=== PATIENT | male | born 1985 | race Caucasian/White ===

== ENCOUNTER 2017-12-25 00:51 | Emergency (ER) | payer MEDICAID ==
[~2017-12-25] VITALS: Ht 175.3 cm; Wt 125.0 kg
[2017-12-25 00:58] VITALS: BP 175/104
[2017-12-25] MEDS ORDERED: MAALOX/HYOSCYAMINE/LIDOCAINE 45 ML BTL ONE (01:20)
[2017-12-25] MEDS ORDERED: PROMETHAZINE 25 MG/ML, 1ML IM STA (01:28)
[2017-12-25] MEDS ORDERED: MAALOX/HYOSCYAMINE/LIDOCAINE 45 ML BTL PO ONE (01:30)
[2017-12-25] MEDS ORDERED: PROMETHAZINE 25MG TABLET ONE (01:32)
[2017-12-25] MEDS ORDERED: PROMETHAZINE 25MG TABLET PO STA (01:40)
[2017-12-25 01:54] LABS: MICROSCOPIC NOT IND
[2017-12-25 01:55] LABS: CULTURE INDICATED? NO
[2017-12-25 01:58] LABS: AMPHETAMINE SCREEN, URINE Negative (Negative); BARBITURATE SCREEN, URINE Negative (Negative); BENZODIAZEPINE SCREEN, URINE Negative (Negative); CANNABINOID SCREEN, URINE Positive (Negative); COCAINE SCREEN, URINE Negative (Negative); METHADONE SCREEN, URINE Negative (Negative); OPIATE SCREEN, URINE Negative (Negative)
[2017-12-25 02:00] LABS: BASOPHILS % (AUTO) 1 % (0-1); EOSINOPHILS # (AUTO) 0.26 x10^3/uL (0-0.4); EOSINOPHILS % (AUTO) 2 % (1-7); LYMPHOCYTES # (AUTO) 2.34 x10^3/uL (1-3.4); LYMPHOCYTES % (AUTO) 21 % (22-44); MD NO; MEAN CORPUSCULAR HEMOGLOBIN 30.7 pg (27.5-34.5); MEAN CORPUSCULAR HGB CONC 34.2 g/dL (33.2-36.2); MEAN CORPUSCULAR VOLUME 89.6 fL (81-97); MEAN PLATELET VOLUME 8.3 fL (7.4-10.4); MONOCYTES # (AUTO) 0.71 x10^3/uL (0.2-0.8); MONOCYTES % (AUTO) 6 % (2-9); NEUTROPHILS # (AUTO) 7.96 x10^3/uL (1.8-6.8); NEUTROPHILS % (AUTO) 70 % (42-75); PLATELET COUNT 303 x10^3/uL (130-400); RED BLOOD COUNT 5.71 x10^6/uL (4.38-5.82); RED CELL DISTRIBUTION WIDTH 13.1 % (9.4-14.8)
[2017-12-25] MEDS ORDERED: KETOROLAC 30 MG/1 ML IVPush ONE (02:00)
[2017-12-25 02:05] LABS: ALANINE AMINOTRANSFERASE 40 U/L (12-78); ALBUMIN 3.8 g/dL (3.4-5.0); ANION GAP 11 mmol/L (5-15); CALCIUM 9.6 mg/dL (8.5-10.1); CHLORIDE 106 mmol/L (98-107); CREATININE 1.18 mg/dL (0.7-1.3)
[2017-12-25 02:07] LABS: ALKALINE PHOSPHATASE 72 U/L (45-117); BILIRUBIN,TOTAL 0.3 mg/dL (0.2-1.0); TOTAL PROTEIN 8.2 g/dL (6.4-8.2)
[2017-12-25] MEDS ORDERED: KETOROLAC 30 MG/1 ML ONE (02:17)
[2017-12-25] MEDS ORDERED: OMNIPAQUE 350 MG/ML, 100ML BOTTLE ONE (02:26)
== END 2017-12-25 03:02 | disposition home or self-care (01) ==
LOC: ED 01:26
DX: R10.13 Epigastric pain (principal); R10.12 Left upper quadrant pain; R10.11 Right upper quadrant pain; F17.200 Nicotine dependence, unspecified, uncomplicated
CPT/HCPCS: 36415; 74177; 80053; 80307; 81003; 83690; 85025; 96374; 99285; J1885; Q0169; Q9967

== ENCOUNTER 2017-12-31 03:24 | Day surgery (SDC) | payer MEDICAID ==
[~2017-12-31] VITALS: Ht 177.8 cm; Wt 100.0 kg
[2017-12-31] MEDS ORDERED: ONDA4TAB7 PO (03:35)
[2017-12-31] MEDS ORDERED: FAMO10TA77 PO (03:35)
[2017-12-31] MEDS ORDERED: MORPHINE SULFATE 4 MG/ML, 1ML ONE ×2 (03:52→07:06)
[2017-12-31] MEDS: MORPHINE SULFATE 4 MG/ML, 1ML IVPush PRN ×2 (03:53→07:08)
[2017-12-31 04:17] LABS: BASOPHILS # (AUTO) 0.13 x10^3/uL (0-0.1); BASOPHILS % (AUTO) 1 % (0-1); EOSINOPHILS # (AUTO) 0.58 x10^3/uL (0-0.4); EOSINOPHILS % (AUTO) 5 % (1-7); LYMPHOCYTES # (AUTO) 2.01 x10^3/uL (1-3.4); LYMPHOCYTES % (AUTO) 17 % (22-44); MD NO; MEAN CORPUSCULAR HGB CONC 33.5 g/dL (33.2-36.2); MEAN CORPUSCULAR VOLUME 89.5 fL (81-97); MEAN PLATELET VOLUME 7.5 fL (7.4-10.4); MONOCYTES # (AUTO) 0.79 x10^3/uL (0.2-0.8); MONOCYTES % (AUTO) 7 % (2-9); NEUTROPHILS # (AUTO) 8.38 x10^3/uL (1.8-6.8); NEUTROPHILS % (AUTO) 71 % (42-75); PLATELET COUNT 351 x10^3/uL (130-400); RED BLOOD COUNT 5.18 x10^6/uL (4.38-5.82); RED CELL DISTRIBUTION WIDTH 12.9 % (9.4-14.8)
[2017-12-31 04:29] LABS: ALANINE AMINOTRANSFERASE 34 U/L (12-78); ALBUMIN 3.3 g/dL (3.4-5.0); ANION GAP 8 mmol/L (5-15); CALCIUM 8.8 mg/dL (8.5-10.1); CHLORIDE 104 mmol/L (98-107); CREATININE 0.99 mg/dL (0.7-1.3)
[2017-12-31 04:31] LABS: ALKALINE PHOSPHATASE 72 U/L (45-117); BILIRUBIN,TOTAL 0.3 mg/dL (0.2-1.0); TOTAL PROTEIN 7.9 g/dL (6.4-8.2)
[2017-12-31] MEDS ORDERED: SODIUM CHLORIDE 0.9% 1,000 ML IV ONE (06:24)
[2017-12-31] MEDS ORDERED: CEFTRIAXONE PMX 1GM/50ML 50 ML ONE (06:26)
[2017-12-31] MEDS ORDERED: CEFOTETAN PMX 1GM/50ML 50 ML IV ONE (06:30)
[2017-12-31] MEDS ORDERED: SODIUM CHLORIDE FLUSH 10ML SYR IVF PRN (06:30)
[2017-12-31 07:26] VITALS: BP 153/92
[2017-12-31] MEDS ORDERED: FENTANYL PF 250 MCG/5ML ONE (08:28)
[2017-12-31] MEDS ORDERED: MIDAZOLAM 1 MG/ML, 2ML ONE (08:28)
[2017-12-31] MEDS ORDERED: PROPOFOL 10 MG/ML, 20ML ONE (08:29)
[2017-12-31] MEDS ORDERED: ROCURONIUM 10MG/ML,5ML ONE (08:30)
[2017-12-31] MEDS ORDERED: SUCCINYLCHOLINE 20 MG/ML, 10ML ONE (08:30)
[2017-12-31] MEDS ORDERED: NEOSTIGMINE 1 MG/ML, 10ML ONE (08:30)
[2017-12-31] MEDS ORDERED: GLYCOPYRROLATE 0.2MG/1ML, 5ML ONE (08:31)
[2017-12-31] MEDS ORDERED: CEFOTETAN PMX 1GM/50ML 50 ML ONE ×2 (08:58)
[2017-12-31] MEDS ORDERED: ACETAMINOPHEN 325 MG TABLET PO PRN (09:30)
[2017-12-31] MEDS ORDERED: ONDANSETRON 2MG/ML, 2ML IV PRN (09:30)
[2017-12-31] MEDS ORDERED: FENTANYL PF 100 MCG/2ML IV PRN (09:30)
[2017-12-31] MEDS ORDERED: MEPERIDINE/PF 25MG/0.5ML IVPush PRN (09:30)
[2017-12-31] MEDS ORDERED: ONDANSETRON ODT 8 MG PO PRN (09:30)
[2017-12-31] MEDS ORDERED: PROMETHAZINE 25 MG/ML, 1ML IM PRN ×2 (09:30)
[2017-12-31] MEDS ORDERED: hydrALAzine 20 MG/ML, 1ML IV PRN (09:30)
[2017-12-31] MEDS ORDERED: PROMETHAZINE 25 MG/ML, 1ML IV PRN (09:30)
[2017-12-31] MEDS ORDERED: HYDROmorphone 1 MG/ML, 1ML IV PRN (09:30)
[2017-12-31] MEDS ORDERED: MORPHINE SULFATE 4 MG/ML, 1ML IVPush PRN (09:30)
[2017-12-31] MEDS ORDERED: BUPIVACAINE/PF-EPI 0.5% 1:200K INFIL ONE (10:06)
[2017-12-31] MEDS ORDERED: FENTANYL PF 100 MCG/2ML ONE ×3 (10:08→11:37)
[2017-12-31] MEDS ORDERED: LABETALOL 5MG/ML, 20ML ONE (11:04)
[2017-12-31] MEDS: LABETALOL 5MG/ML, 20ML IV PRN ×4 (11:05→11:56)
[2017-12-31] MEDS ORDERED: OXYcodone 5 MG/5 ML ORAL.SOL UDC ONE ×2 (11:08→16:37)
[2017-12-31] MEDS: OXYcodone 5 MG/5 ML ORAL.SOL UDC PO PRN ×2 (11:09→16:38)
== END 2017-12-31 18:50 | disposition home or self-care (01) ==
LOC: ED 03:44 → OR 18:35 → ED 18:50 → OR 18:50
PROVIDERS: ATTEND Colon & Rectal Surgery
DX: K80.12 Calculus of gallbladder with acute and chronic cholecystitis without obstruction (principal)
CPT/HCPCS: 36415; 47562; 76700; 80053; 83690; 85025; 88304; 93005; J0330; J2250; J2704; J2710; J3010; J3490; J7030; S0074

== ENCOUNTER 2018-01-09 13:20 | Emergency (ER) | payer MEDICAID ==
[~2018-01-09] VITALS: Ht 177.8 cm; Wt 125.2 kg
[~2018-01-09 13:20] MED LIST: FAMO10TA77 PO; ONDA4TAB7 PO
[2018-01-09 13:30] VITALS: BP 146/92
[2018-01-09] MEDS ORDERED: DIPHENHYDRAMINE 50 MG CAPSULE ONE (14:25)
[2018-01-09] MEDS ORDERED: DIPHENHYDRAMINE 50 MG/ML, 1ML IM ONE (14:30)
== END 2018-01-09 14:37 | disposition home or self-care (01) ==
LOC: ED 14:31
DX: L50.0 Allergic urticaria (principal); Z90.49 Acquired absence of other specified parts of digestive tract
CPT/HCPCS: 96372; 99283; J1200; J7512

== ENCOUNTER 2018-01-16 23:47 | Emergency (ER) | payer MEDICAID ==
[~2018-01-16] VITALS: Ht 177.8 cm; Wt 124.1 kg
[2018-01-16 23:49] VITALS: BP 148/99
[2018-01-17] MEDS ORDERED: KETOROLAC 30 MG/1 ML ONE (00:23)
[2018-01-17] MEDS ORDERED: KETOROLAC 30 MG/1 ML IM ONE (00:30)
== END 2018-01-17 01:05 | disposition home or self-care (01) ==
LOC: ED 01-17 01:03
DX: M25.512 Pain in left shoulder (principal); E66.01 Morbid (severe) obesity due to excess calories; Z90.49 Acquired absence of other specified parts of digestive tract; Z68.39 Body mass index [BMI] 39.0-39.9, adult
CPT/HCPCS: 73030; 96372; 99284; J1885

== ENCOUNTER 2018-01-17 11:26 | Emergency (ER) | payer MEDICAID ==
[~2018-01-17] VITALS: Ht 177.8 cm; Wt 125.0 kg
[2018-01-17] MEDS ORDERED: FAMOTIDINE 20 MG TABLET ONE (11:50)
[2018-01-17] MEDS ORDERED: PANTOPRAZOLE 20MG TABLET ONE (11:50)
[2018-01-17] MEDS ORDERED: EPINEPHRINE 1 MG/ML, 1ML ONE (11:52)
[2018-01-17] MEDS ORDERED: EPINEPHRINE 1 MG/ML, 1ML IM ONE (12:00)
[2018-01-17] MEDS ORDERED: FAMOTIDINE 20 MG TABLET PO ONE (12:00)
[2018-01-17 12:41] VITALS: BP 141/80
== END 2018-01-17 13:41 | disposition home or self-care (01) ==
LOC: ED 12:15
DX: R22.9 Localized swelling, mass and lump, unspecified (principal); T39.8X5A Adverse effect of other nonopioid analgesics and antipyretics, not elsewhere classified, initial encounter; E66.01 Morbid (severe) obesity due to excess calories; Z68.39 Body mass index [BMI] 39.0-39.9, adult; Z90.49 Acquired absence of other specified parts of digestive tract
CPT/HCPCS: 96372; 99283; J0171; J7512

== ENCOUNTER 2018-07-15 08:19 | Emergency (ER) | payer SELFPAY ==
[~2018-07-15] VITALS: Ht 175.3 cm; Wt 128.7 kg
[2018-07-15 08:27] VITALS: BP 172/100
[2018-07-15] MEDS ORDERED: IBUPROFEN 200 MG TABLET ONE (09:41)
[2018-07-15] MEDS ORDERED: IBUPROFEN 800 MG TABLET PO ONE (10:00)
== END 2018-07-15 11:01 | disposition home or self-care (01) ==
LOC: ED 09:09
DX: S43.52XA Sprain of left acromioclavicular joint, initial encounter (principal); Z88.5 Allergy status to narcotic agent; W20.8XXA Other cause of strike by thrown, projected or falling object, initial encounter; Y93.89 Activity, other specified; Y92.69 Other specified industrial and construction area as the place of occurrence of the external cause; Y99.8 Other external cause status
CPT/HCPCS: 99283

== ENCOUNTER 2020-07-27 10:27 | Day surgery (SDC) | payer MEDICAID ==
[2020-07-26 15:10] LABS: HCT (SEDRATE) 46.7 % (39.2-51.8)
[2020-07-26 15:11] LABS: BASOPHILS % (AUTO) 1 % (0-1); EOSINOPHILS % (AUTO) 7 % (1-7); LYMPHOCYTES % (AUTO) 28 % (22-44); MEAN CORPUSCULAR HEMOGLOBIN 29.1 pg (27.5-34.5); MEAN CORPUSCULAR HGB CONC 33.6 g/dL (33.2-36.2); MONOCYTES % (AUTO) 7 % (2-9); NEUTROPHILS % (AUTO) 57 % (42-75); PLATELET COUNT 361 x10^3/uL (130-400); RED BLOOD COUNT 5.33 x10^6/uL (4.38-5.82); RED CELL DISTRIBUTION WIDTH 13.7 % (9.4-14.8)
[2020-07-26 15:16] LABS: MD NO
[2020-07-26 15:19] LABS: ANION GAP 6 mmol/L (5-15); CALCIUM 9.1 mg/dL (8.5-10.1); CHLORIDE 109 mmol/L (98-107); CREATININE 0.94 mg/dL (0.7-1.3)
[2020-07-26 15:37] LABS: INTERNATIONAL NORMALIZED RATIO 0.97 (0.93-1.1); PROTHROMBIN TIME 10.4 Seconds (9.6-11.5)
[~2020-07-27] VITALS: Ht 175.3 cm; Wt 158.5 kg
[~2020-07-27 10:27] MED LIST changes: +IBUP-1223 PO
[2020-07-27 11:12] VITALS: BP 131/87
[2020-07-27] MEDS ORDERED: LACTATED RINGERS 1,000 ML IV SCH (11:30)
[2020-07-27] MEDS ORDERED: CHLORHEXIDINE 15 ML UDC PO ONE (11:30)
[2020-07-27] MEDS ORDERED: VANCOMYCIN 1,000 MG in SODIUM CHLORIDE 0.9% 100 ML IV ONE (11:30)
[2020-07-27] MEDS ORDERED: VANCOMYCIN PMX 1GM/200ML 200 ML IV ONE (11:30)
[2020-07-27] MEDS ORDERED: methylPREDNISolone *ACETATE* 40 MG/ML ONE (12:19)
[2020-07-27] MEDS ORDERED: BUPIVACAINE/PF 0.5% ONE (12:19)
[2020-07-27] MEDS ORDERED: EPINEPHRINE 1 MG/ML, 1ML ONE (12:19)
[2020-07-27] MEDS ORDERED: MIDAZOLAM 1 MG/ML, 2ML ONE (12:23)
[2020-07-27] MEDS ORDERED: FENTANYL PF 100 MCG/2ML ONE ×2 (12:23→13:40)
[2020-07-27] MEDS ORDERED: SUCCINYLCHOLINE 20 MG/ML, 10ML ONE (12:25)
[2020-07-27] MEDS ORDERED: PROPOFOL 10 MG/ML, 20ML ONE (12:25)
[2020-07-27] MEDS ORDERED: CEFAZOLIN 1,000 MG ONE (12:28)
[2020-07-27] MEDS ORDERED: DEXAMETHASONE 4 MG/ML, 1ML ONE (12:31)
[2020-07-27] MEDS ORDERED: ONDANSETRON 2MG/ML, 2ML ONE (12:33)
[2020-07-27] MEDS ORDERED: EPHEDRINE 50 MG/ML, 1ML IVPush PRN (13:00)
[2020-07-27] MEDS ORDERED: HYDROmorphone 1 MG/ML, 1ML INJ IVPush PRN (13:00)
[2020-07-27] MEDS ORDERED: LABETALOL 5MG/ML, 20ML IV PRN (13:00)
[2020-07-27] MEDS ORDERED: ONDANSETRON 2MG/ML, 2ML IVPush PRN (13:00)
[2020-07-27] MEDS ORDERED: ALBUTEROL SULFATE 2.5 MG/3 ML NPPB PRN (13:00)
[2020-07-27] MEDS ORDERED: hydrALAzine 20 MG/ML, 1ML IV PRN (13:00)
[2020-07-27] MEDS ORDERED: PROMETHAZINE 25 MG/ML, 1ML IVPush PRN (13:00)
[2020-07-27] MEDS ORDERED: ACETAMINOPHEN 325 MG TABLET PO PRN (13:00)
[2020-07-27] MEDS ORDERED: DIAZEPAM 5 MG/ML, 2ML IVPush PRN (13:00)
[2020-07-27] MEDS ORDERED: PROMETHAZINE 12.5 MG SUPP PR PRN (13:00)
[2020-07-27] MEDS ORDERED: DIPHENHYDRAMINE 50 MG/ML, 1ML IVPush PRN ×2 (13:00)
[2020-07-27] MEDS ORDERED: HYDROcodone/APAP 7.5-325MG/15ML UDC PO PRN (13:00)
[2020-07-27] MEDS ORDERED: MEPERIDINE/PF 25MG/0.5ML IVPush PRN (13:00)
[2020-07-27] MEDS ORDERED: MIDAZOLAM 1 MG/ML, 2ML IV PRN (13:00)
[2020-07-27] MEDS ORDERED: FENTANYL PF 100 MCG/2ML IV PRN (13:00)
[2020-07-27] MEDS ORDERED: ALBUTEROL HFA 90 MCG/SPRAY ONE (13:46)
[2020-07-27] MEDS ORDERED: ACETAMINOPHEN 650 MG/20.3 ML UDC ONE (14:36)
[2020-07-27] MEDS ORDERED: HYDROcodone/APAP 7.5-325MG/15ML UDC ONE (14:37)
== END 2020-07-27 16:30 | disposition home or self-care (01) ==
LOC: OUT 10:27
PROVIDERS: ATTEND Orthopaedic Surgery Orthopaedic Surgery of the Spine
DX: M23.242 Derangement of anterior horn of lateral meniscus due to old tear or injury, left knee (principal); M23.222 Derangement of posterior horn of medial meniscus due to old tear or injury, left knee; M23.212 Derangement of anterior horn of medial meniscus due to old tear or injury, left knee; M94.262 Chondromalacia, left knee; M67.52 Plica syndrome, left knee; E66.01 Morbid (severe) obesity due to excess calories; Z68.43 Body mass index [BMI] 50.0-59.9, adult; Z88.8 Allergy status to other drugs, medicaments and biological substances; Z79.899 Other long term (current) drug therapy; Z20.822 Contact with and (suspected) exposure to COVID-19; Z98.890 Other specified postprocedural states
CPT/HCPCS: 29880; 36415; 71046; 80048; 83036; 85025; 85610; 85651; 85730; 93005; J0171; J0330; J0690; J1030; J1100; J2250; J2405; J2704; J3010; J3370; J7120; U0003

== ENCOUNTER 2020-10-05 17:02 | Emergency (ER) | payer MEDICAID ==
[~2020-10-05] VITALS: Ht 175.3 cm; Wt 165.1 kg
[~2020-10-05 17:02] MED LIST changes: +FAMO-185 PO; -FAMO10TA77 PO
[2020-10-05 17:28] VITALS: BP 152/97
== END 2020-10-05 18:16 | disposition home or self-care (01) ==
LOC: ED 18:00
DX: M25.562 Pain in left knee (principal); E78.00 Pure hypercholesterolemia, unspecified; Z90.49 Acquired absence of other specified parts of digestive tract; Z87.891 Personal history of nicotine dependence
CPT/HCPCS: 99283